=== PATIENT | male | born 1965 | race Caucasian/White ===

== ENCOUNTER → 2017-05-19 | Outpatient (CLI) | payer OTHER, BC ==
--- NOTE | 2017-05-19 13:15 | DI ---
There there are postoperative changes in the lumbar spine extending from L2 to the sacrum. There is p osterior hardware from L2-L4. Lung bases are clear. Liver is unremarkable. Gallbladder is absent. Spleen unremarkable. Pancreas unremarkable. No adrenal masses. 4 mm nonobstructing calculus in the inferior pole right pelvic calyceal system . Right ureter is norm al in course and caliber. There is no obstructive uropathy on the right side There are no left renal calculi. Left ureter is normal in course and caliber. There is no left-sided obstructive uropathy. Urinary bladder is unremarkable There is no focal inflammation. Appendicolith, but the appendix is normal in diameter and there is no inflammation to indicate appendicitis. No free air. No free fluid. No intestinal obstruction. Impression: 4 mm nonobstructing calculus inferior pole right pelvicalyceal system. No obstructive uropathy. Postoperative changes in the lumbar spine Status post cholecystectomy
== END ==
LOC: CT 08:59
DX: N20.0 Calculus of kidney (principal)
CPT/HCPCS: 74176

== ENCOUNTER 2018-11-02 11:23 | Inpatient (IN) ==
--- NOTE | 2018-11-02 11:46 | EKG ---
[address] [address] Measurements Intervals [place] Rate: 96 P: 63 SC: 150 QRS: 86 QRSD: 96 T: 47 QT: 341 QTc: 395 Interpretive Statements SINUS RHYTHM INTERPRETATION BASED ON A DEFAULT AGE OF 40 YEARS Compared to ECG 07/24/2018 14:58:53 No significant changes Electronically Signed On 11-02-18 14:58:58 MST by Tyler Peterson [email or web address]
[2018-11-02 11:48] LABS: BASOPHILS # (AUTO) 0.02 10*3/UL; BASOPHILS % (AUTO) 0.3 % (0-1); EOSINOPHILS # (AUTO) 0.15 10*3/UL; EOSINOPHILS % (AUTO) 2.4 % (0-8); Hematocrit [HCT] 47.7 % (42.0-52.0); LYMPHOCYTES # (AUTO) 2.15 10*3/uL; MEAN CORPUSCULAR HEMOGLOBIN 29.8 PG (27-31); MEAN CORPUSCULAR HGB CONC 33.5 g/dL (33-37); MEAN CORPUSCULAR VOLUME 88.8 FL (80-90); MEAN PLATELET VOLUME 9.6 FL (7.4-12.2); MONOCYTES # (AUTO) 0.33 10*3/UL (0.3-0.8); MONOCYTES % (AUTO) 5.4 % (5-15); NEUTROPHILS # (AUTO) 3.47 10*3/UL; NEUTROPHILS % (AUTO) 56.6 % (50-80); RED BLOOD COUNT 5.37 10^6/uL (4.70-6.10)
[2018-11-02 11:50] LABS: PLATELET MORPHOLOGY COMMENT NORMAL MORPHOLOGY (NORM); RBC MORPHOLOGY COMMENT NORMAL MORPHOLOGY (NORM); WBC MORPHOLOGY COMMENT NORMAL MORPHOLOGY (NORM)
[2018-11-02 11:55] LABS: BLOOD UREA NITROGEN 16 mg/dL (7-22); BUN/CREATININE RATIO 13.33 (6-20); SERUM ALBUMIN 5.1 g/dL (3.5-4.8)
[2018-11-02] MEDS ORDERED: Sodium Chloride 0.9% 1,000 ML PRIMARY IV ONE (12:07)
[2018-11-02] MEDS ORDERED: ONDANSETRON 4 MG/2 ML VIAL IVP ONE (12:07)
--- NOTE | 2018-11-02 12:23 | DI ---
XR CXR 1VW 11/02/2018 10:43 AM [place] [facility] [place] Pain Comparison: 07/24/2018. Findings: A single portable frontal view of the chest is submitted. A neural stimulator projects over the lower thoracic spine. Images demonstrate low lung volumes with elevation of the left hemidiaphragm and patchy left lung bas e opacities. There is no large pneumothorax or pleural effusion. The cardiomediastinal silhouette is within normal limits for technique. The osseous structures are not significantly changed. Impression: Lung volumes are low and there is elevation of the left hemidiaphragm with patchy left l antoni base opacities. This could represent atelectasis versus early airspace disease in the correct cli nical setting. Repeat imaging 6 weeks following completion of therapy is recommended in order to ensu re resolution.
--- NOTE | 2018-11-02 13:24 | DI ---
CT ANGIOGRAM OF THE CHEST, 11/02/2018 12:21 PM : Clinical History: Chest pain. Elevated D-dimer test. Previous Exam: 04/27/2018. Technique: Scans from base of neck to lung bases with IV contrast. Bolus tracking protocol was used f or timing the injection. Non-MIPS and MIPS sagittal/coronal images generated. IV Contrast: 65 mL of Isovue 370 Base of Neck: Normal. Nodes: Normal axillary, supraclavicular, mediastinal, and hilar lymph nodes. Heart: Normal. No coronary artery calcifications. Aorta: The ascending aorta is mildly ectatic with an AP and transverse diameter of 33 mm. The descend ing aorta is normal. Pulmonary Arteries: Normal. No pulmonary emboli or infarcts; no pulmonary hypertension. Lungs: No infiltrates. Effusion(s): None. Nodules: None. Bony Structures: Normal visualized portions of ribs, sternum, scapulae, clavicles, and shoulders. Nor mal visualized portions of thoracic spine. Limited Upper Abdomen: Normal adrenal glands and visualized portions of the spleen. There probably is hepatomegaly with mild fatty infiltration. READIN. Normal CTA of the chest. There are no pulmonary emboli or pulmonary infarcts. There has been no s ignificant interval change. 2. The ascending aorta is ectatic without evidence of a dissection.
--- NOTE | 2018-11-02 13:45 | PDOC ---
Chest Pain HPI - General Chief Complaint: Chest Pain Stated Complaint: CHEST PAIN Date Seen by Provider: 11/02/18 Time Seen by Provider: 11:25 Source: Patient, Spouse, EMS Exam Limitations: POSITIVE: No limitations Treatment Prior to Arrival: REPORTS: Nitroglycerin, Aspirin Nurse's Notes Reviewed & Considered: Yes EMS Report Reviewed & Considered: Verbal - History of Present Illness Initial Comments: The patient is a 53-year-old male who is brought to the emergency room by jann carey. 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 He managed to sleep last night, but states that his discomfort did disturb his sleep. He describes some chest pain which radiates into his left shoulder and arm. He has a sensation of being short of breath. 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 Patient's called an ambulance and the ambulance administered 4 baby aspirin and a nitroglycerin tablet in route. Patient states his chest pain is minimal on arrival to the emergency room. Patient has a history of hypertension. He states he is on disability for chronic low back pain. Body Location Affected: REPORTS: Chest Timing: REPORTS: Intermittent Duration: <24 hours Severity: Moderate Persistent/Worse since (date): 11/02/18 Persistent/Worse since (time): 07:00 Context: REPORTS: Rest Quality: REPORTS: "Pain", Pressure Radiation: REPORTS: Shoulder (L) Associated Symptoms: REPORTS: Shortness of Breath. DENIES: Nausea, Vomiting, Diaphoresis, Hurts to Breathe, Palpitations, Productive Cough (blood), Productive Cough (sputum), Weakness, Dizziness Modifying Factors: improves with: None Reported Similar Symptoms Previously: No Recently seen/treated/hospitalized: No Any Prior Injuries Related to Current Complaint?: No - Patient Home Medications Home Medications: Home Medications Albuterol Sulfate [Proair Hfa] 1 puff INH Q4-6H PRN #3 puff 01/23/16 mirtazapine 15 mg tablet 15 mg PO QHS 09/12/17 topiramate 100 mg tablet 1 mg PO BID tab 09/12/17 venlafaxine ER 75 mg capsule,extended release 24 hr 75 mg PO QDAY 09/12/17 Cyclobenzaprine HCl 10 mg PO BEDTIME 01/20/18 amlodipine 5 mg tablet 5 mg PO QHS #90 tab 03/03/18 Omeprazole 20 mg PO BEDTIME 04/19/18 Diazepam 5 mg PO DAILY 04/27/18 ramipril 10 mg capsule 10 mg PO QDAY #90 cap 05/05/18 pravastatin 80 mg tablet 80 mg PO QHS #90 tab 08/31/18 - Patient Allergies Allergies/Adverse Reactions: Allergies Allergy/AdvReac Type Severity Reaction Status Date / Time prednisone Allergy Intermediate RASH Verified 11/02/18 11:35 Past Medical History - heen HEENT History: Denies History Cardiovascular History: Hypertension, Hyperlipidemia Additional Cardiovasular History: Had a stress test in 2002, had pericarditis. Respiratory History: COPD, Snoring, Other (please comment) Additional Respiratory History: reactive airway disease pt states 65% lung function (unknown) Gastrointestinal History: Other (please comment) Additional Gastrointestinal History: SPLENOMEGALY/ HEPATIC STEATOSIS Genitourinary History: Kidney Stones Additional Genitourinary History: Saw a urologist in [place], ureter was too narrow and had stent, unable to remove stone. Endocrine History: Denies History Musculoskeletal History: Back Pain, Back Injury, Limited ROM, Joint Pain, Other (please comment) Prosthesis or Implant: Yes (spinal stimulator L buttocks) Additional Musculoskeletal History: Multipe lumbar surgeries including: fusions, hardware removal and replaced, spinal stimulator placed. Has tried several pain meds that have not relieved pain, is following up with spine for possiblity of getting a pain pump. Last fusion was February of 2014 in [place]. Has tried spinal stimulator Neurological History: Denies History Blood Disorders: Denies History Psychiatric History: Depression, Anxiety Disorders, Other (please comment) Additional Psychiatric History: Had suicidal ideation when taking Viibryd, had a suicide attempt, reports shooting a gun off by his ear. Was not hospitalized. Feels that his zoloft is causing diaphoresis and nausea History of Sexually Transmitted Diseases: No Cancer History: Denies History In Past Year Been Physically Harmed or Verbally Threatened: No History of MDRO: No History of Other Communicable Diseases: No Tobacco Use: Never Smoker Alcohol Use: None In the Past 12 Months, Have Used or Abuse Any Substance: None Previous Surgical History: Yes Type / Date of Surgery: cholecystectomy 15 years ago, disc surgery, three spinal fusions, implant of stimulator, R knee scope, 7 back surgeries Anesthesia Reactions: No (PONV) Malignant Hyperthermia: No Significant Family History: No pertinent family hx Past Medical History Reviewed: Reviewed - No Changes ROS - Limitations ROS Limitations: No Limitations Constitution: REPORTS: Denies Symptoms Cardiovascular: REPORTS: Chest Pain Respiratory: REPORTS: Shortness Of Breath Neurological: REPORTS: Denies Neuro Symptoms Gastrointestinal: REPORTS: Denies GI Symptoms Endocrine: REPORTS: Denies Symptoms Musculoskeletal: REPORTS: Denies MS Symptoms Genitourinary: REPORTS: Denies Symptoms Eyes: REPORTS: Denies Symptoms ENT: REPORTS: Denies Symptoms Skin: REPORTS: Denies Skin Symptoms Lympathic: REPORTS: Denies Lympathic Symptoms Immunologic: POSITIVE: Denies Symptoms Psychiatric: POSITIVE: Denies Psych Symptoms Chest Pain PE - General Appearance General Appearance: REPORTS: Alert, Cooperative, No Acute Distress, No Evidence of Trauma - HEENT HEENT: POSITIVE: Head Inspection Nml, Eyes Inspection Nml, Ears Inspection Nml, Nose Inspection Nml, Oral/Dental Inspect. Nml, Pharynx Inspect. Nml, PERRL, EOMI - Neck Neck: REPORTS: Normal Inspection, No Carotid Bruit - Respiratory Respiratory: REPORTS: No Respiratory Distress, Breath Sounds Normal, Chest Non- Tender - Cardiovascular Cardiovascular: REPORTS: Regular Rate and Rhythm, Heart Sounds Normal, Equal Pulses, Strong Pulses, No Murmur, No Gallop, No Friction Rub, No JVD Peripheral Pulses: Radial (R): 2+, Radial (L): 2+ - Abdomen Abdomen: Soft: (All Quadrants), Normal Bowel Sounds: (All Quadrants), Denies Tenderness: (All Quadrants), No Splenomegaly: (All Quadrants), No Hepatomegaly: (All Quadrants), No Guarding: (All Quadrants), No Rebound: (All Quadrants), No Palpable Pulse: (All Quadrants), No Palpabale Mass: (All Quadrants), No Distention: (All Quadrants), No Rigidity: (All Quadrants) - Skin Skin: REPORTS: Intact, Normal For Race, Warm, Dry, No Rash - Extremities Extremity: Non-Tender: (All Extremities), Normal ROM: (All Extremities), Normal Inspection: (All Extremities) - Neurological / Psychological Neurological: POSITIVE: Affect Apporpriate, Oriented X3, carpenter mold Normal As Tested, Motor Normal, Sensation Normal Images - Complete Complete: 1 - Area of described pain Chest Pain Progress - Results Reviewed by me Xrays/CTs/US Reviewed by me: Yes Discussed with Radiologist: Yes Radiology Findings: CTA chest normal, AP chest x-ray shows elevation of the left hemidiaphragm and poor inspiratory effort. CBC and BMP: 11/02/18 11:15 11/02/18 11:15 Lab Results:: Laboratory Results 11/02/18 11/02/18 11/02/18 11:15 11:15 11:15 WBC 6.13 RBC 5.37 Hgb 16.0 Hct 47.7 MCV 88.8 MCH 29.8 MCHC 33.5 RDW Std Deviation 47.6 RDW Coeff of Christiano 14.7 H Plt Count 188 MPV 9.6 Immature Gran % (Auto) 0.2 Neut % (Auto) 56.6 Lymph % (Auto) 35.1 [place] % (Auto) 5.4 Eos % (Auto) 2.4 Baso % (Auto) 0.3 Immature Gran # (Auto) 0.01 Neut # (Auto) 3.47 Lymph # (Auto) 2.15 [place]on # (Auto) 0.33 Eos # (Auto) 0.15 Baso # (Auto) 0.02 WBC Morphology Comment Normal morphology Plt Morphology Comment Normal morphology RBC Morph Comment Normal morphology D-Dimer 1.05 H Sodium 145 Potassium 4.0 Chloride 108 Carbon Dioxide 28 Anion Gap 9 BUN 16 Creatinine 1.2 Estimated GFR > 60 BUN/Creatinine Ratio 13.33 Glucose 113 H Calculated Osmolality 301.0 H Calcium 10.6 Total Bilirubin 0.5 AST 58 H ALT 68 Alkaline Phosphatase 88 CK-MB (CK-2) Troponin I Total Protein 8.0 Albumin 5.1 H Globulin 2.9 Albumin/Globulin Ratio 1.70 11/02/18 11:15 WBC RBC Hgb Hct MCV MCH MCHC RDW Std Deviation RDW Coeff of Christiano Plt Count MPV Immature Gran % (Auto) Neut % (Auto) Lymph % (Auto) Weston % (Auto) Eos % (Auto) Baso % (Auto) Immature Gran # (Auto) Neut # (Auto) Lymph # (Auto) [place]on # (Auto) Eos # (Auto) Baso # (Auto) WBC Morphology Comment Plt Morphology Comment RBC Morph Comment D-Dimer Sodium Potassium Chloride Carbon Dioxide Anion Gap BUN Creatinine Estimated GFR BUN/Creatinine Ratio Glucose Calculated Osmolality Calcium Total Bilirubin AST ALT Alkaline Phosphatase CK-MB (CK-2) 1.77 Troponin I < 0.012 Total Protein Albumin Globulin Albumin/Globulin Ratio EKG Interpreted/Reviewed By Me:: Yes (normal) EKG Interpretation:: POSITIVE: Normal Sinus Rhythm, Normal Rate, Normal Intervals, Normal [place], Normal QRS, Normal ST/T - Patient's Progress Pain Medication Addressed: POSITIVE: Yes (Nitroglycerin as above) School/Work Release Addressed: POSITIVE: Not Applicable Re-Examine Time: 13:30 Re-Examine Comment: Results of radiologic and laboratory tests discussed with patient and his and his parents. Advised that I'm not completely sure what the source of his pain is, but that I could not rule out a cardiac etiology. Options of further evaluation discussed and it was elected to admit the patient for further evaluation and treatment. Status: POSITIVE: Improved, Re-Examined Quality Measure Initiative: CP/AMI: POSITIVE: EKG, ASA - Consult Consult (If Yes, Name of Consulting MD & Time Called): Yes (Dr. Lance, hospitalist [id number],) Consulting MD will see pt:: POSITIVE[place] [facility] [place] Counseled: POSITIVE: Patient, Family, RE: Lab Results, RE: Radiology Results, RE: DX, RE: Need for F/U Patient Care Time - Estimated PCT Patient Care Time (In Minutes): 45 Vital Signs - Recent Vital Signs Vital Signs: Vital Signs (Last 8 hours) Temp Pulse Pulse Resp BP Pulse Ox 11/02/18 11:46 101.8 F H 11/02/18 11:30 95 11/02/18 11:25 99.5 F 100 16 145/73 93 - VS Reviewed Vital Signs Reviewed: Yes Discharge Clinical Impression: Chest pain Discharge Disposition: Admit to Inpatient Condition: Fair Follow Up With: Radu Diaz [Primary Care Provider] - Date Decision to Admit to Inpatient: 11/02/18 Time Decision to Admit to Inpatient: 13:30
[2018-11-02] MEDS ORDERED: ONDANSETRON 4 MG/2 ML VIAL IVP PRN (14:11)
[2018-11-02] MEDS ORDERED: NITROGLYCERIN 0.4 MG SL TAB (BOTTLE OF 3) SL PRN (14:11)
[2018-11-02] MEDS ORDERED: LIDOCAINE W/ SODIUM BICARB 0.5 ML SYR SUBD PRN (14:11)
[2018-11-02] MEDS ORDERED: CALCIUM CARBONATE 500 MG (TUMS) CHEWABLE TABLET PO PRN (14:11)
--- NOTE | 2018-11-02 14:21 | DI ---
LEFT RIB SERIES WITH PA CHEST X-RAY, 11/02/2018 1:28 PM: Clinical History: Trauma to the left ribs. Views: PA chest and two rib views. Chest X-Ray: Previous Exam: 01/29/2015. Soft Tissues: On this view, the patient took a shallow inspiration. No acute soft tissue or bony abno rmality. No subcutaneous emphysema. There is a stimulating device implanted in the midthoracic spine. Heart: Normal heart. Lungs: No infiltrates. No pneumothorax or pulmonary contusion. Effusion(s): None. Mediastinum: Normal mediastinum. Nodules: No pulmonary nodules. Bones: Normal. Left Rib Series: Previous Exam: None at this facility. Ribs: No rib fractures noted. Lung: Normal lung. Readin. Normal PA chest x-ray for the shallow inspiratory effort. 2. No left rib fractures are identified.
[2018-11-02] MEDS ORDERED: ALBUTEROL SULFATE 2.5 MG/3 ML NEB PRN (15:00)
[2018-11-02] MEDS: Sodium Chloride 0.9% 1,000 ML PRIMARY IV SCH (15:22)
[2018-11-02] MEDS: HEPARIN 5000 UNIT/1 ML SUBCUT SCH ×2 (15:22→23:41)
--- NOTE | 2018-11-02 18:14 | PDOC ---
HPI - History of Present Illness History of Present Illness: Is a very nice 53-year-old gentleman was brought to the ER cause of chest pain that started to happen about 15 hours prior to arrival he describes as somebody sitting on his chest discomfort continued to disturb his sleep pain radiated to his left arm and shoulder was also has short of breath with it and no diaphoresis he received aspirin nitroglycerin bladder glycerin in the ambulance patient was admitted for rule out his chest pain is resolved at present time initial troponins are negative Past Medical History Medical History: 1. Hypertension2. Hypercholesterolemia on no medication.3. Chronic back pain on pain medication. He had a spinal stimulator insertion.4. History of kidney stones.5. History of previous pericarditis.6. Depression Surgical History: 1. Cholecystectomy2. 3 back fusion surgeries last one in February 2013.3. History of previous renal stent last September. Family History: Reviewed an Not Pertinent Tobacco Use: Never Smoker In the Past 12 Months, Have Used or Abuse Any of the Following Substance: None Medication / Allergies Home Medications: Home Medications Medication Instructions Recorded Confirmed Type Albuterol Sulfate [Proair Hfa] 1 puff INH Q4-6H PRN #3 puff 01/23/16 11/02/18 History mirtazapine 15 mg tablet 15 mg PO QHS 09/12/17 11/02/18 History topiramate 100 mg tablet 1 mg PO BID tab 09/12/17 11/02/18 History venlafaxine ER 75 mg 75 mg PO QDAY 09/12/17 11/02/18 History capsule,extended release 24 hr Cyclobenzaprine HCl 10 mg PO BEDTIME 01/20/18 11/02/18 History amlodipine 5 mg tablet 5 mg PO QHS #90 tab 03/03/18 11/02/18 Rx Omeprazole 20 mg PO BEDTIME 04/19/18 11/02/18 History Diazepam 5 mg PO DAILY 04/27/18 11/02/18 History ramipril 10 mg capsule 10 mg PO QDAY #90 cap 05/05/18 11/02/18 Rx fluticasone 200 mcg-vilanterol 25 1 each Blst.W.Dev#4 Samples 08/07/18 11/02/18 Sample mcg/dose powder for inhalation pravastatin 80 mg tablet 80 mg PO QHS #90 tab 08/31/18 11/02/18 Rx Allergies/Adverse Reactions: Allergies Allergy/AdvReac Type Severity Reaction Status Date / Time prednisone Allergy Intermediate RASH Verified 11/02/18 11:35 Review of Systems - Review of Systems All Systems: Reviewed & No Additional Complaints Except as Stated - Cardiovascular Cardiovascular: REPORTS: Chest Pain - Gastrointestinal Gastrointestinal / Abdominal: DENIES: Negative System Review, Nausea, Vomiting, Diarrhea, Constipation, Abdominal Pain, Bloody Stool, Poor Appetite, Heartburn, Regurgitation, Bloating, Lactose Intolerance, Melena, Bright Red Blood per Rectum, Other, See HPI Exam - Vitals Vital Signs: Vital Signs Temperature 97.9 F Temperature Source Temporal Artery Scan Pulse Rate [Pulse Oximeter 95 Right] Pulse Rate 92 Respiratory Rate 18 Blood Pressure [Right Arm] 113/83 Blood Pressure 123/104 Pulse Ox 92 Oxygen Flow Rate ra Oxygen Delivery Method Room Air Height 5 ft 7 in Weight 221 lb - General General Appearance: No Acute Distress, Cooperative - Respiratory Respiratory Exam: POSITIVE: Clear to Auscultation - Bilaterally, Breathing Non Labored, Normal To Percussion, Normal to Percussion and Palpation - Cardiovascular Cardiovascular Exam: POSITIVE: RRR, No Murmur, No Clicks, No Gallops, No Rubs, PMI Non-Displaced - GI/Abdominal GI/Abdominal Exam: POSITIVE: Normal Bowel Sounds, Non Tender, Non Distended, Soft, No Masses, No Hepatomegaly, No Splenomegaly, No Organomegaly - Extremities Extremities Exam: POSITIVE: No Clubbing Present, No Edema Present, No Cyanosis Present Results - Labs CBC and BMP: 11/02/18 11:15 11/02/18 11:15 Assessment and Plan - Patient Problems (1) Chest pain Current Visit: Yes Status: Acute Comment: Rule out with serial enzymes and order Lexiscan stress test chest pain resolved at present time initial troponin is negative Code(s): R07.9 - Chest pain, unspecified (2) Benign hypertension Current Visit: No Status: Chronic Onset Date: ~2005 (3) COPD (chronic obstructive pulmonary disease) Current Visit: No Status: Chronic Code(s): J44.9 - Chronic obstructive pu lmonary disease, unspecified
[2018-11-02] MEDS: Topiramate Tab 50 MG TAB PO SCH (20:45)
[2018-11-02] MEDS ORDERED: Mirtazapine Tab 15 MG TAB PO SCH (21:00)
[2018-11-02] MEDS ORDERED: AmLODIPine Tab 5 MG TABLET PO SCH (21:00)
[2018-11-02] MEDS ORDERED: CYCLOBENZAPRINE 10 MG TABLET PO PRN (21:00)
[2018-11-02] MEDS ORDERED: Pravastatin 80mg Tab PO SCH (21:00)
[2018-11-02] MEDS ORDERED: OMEPRAZOLE 20 MG CAPSULE PO SCH (21:00)
[2018-11-03] MEDS: Sodium Chloride 0.9% 1,000 ML PRIMARY IV SCH ×2 (01:24→08:51)
[2018-11-03 05:04] LABS: BLOOD UREA NITROGEN 16 mg/dL (7-22); CHOL/HDL RATIO 4.21 RATIO (0-4.0); SERUM CHOLESTEROL 156 mg/dL (120-200)
[2018-11-03] MEDS: HEPARIN 5000 UNIT/1 ML SUBCUT SCH (07:00)
[2018-11-03] MEDS: Topiramate Tab 50 MG TAB PO SCH (08:51)
[2018-11-03] MEDS ORDERED: RAMIPRIL 10 MG CAPSULE PO SCH (09:00)
[2018-11-03] MEDS ORDERED: VENLAFAXINE XR 75 MG CAP PO SCH (09:00)
[2018-11-03] MEDS ORDERED: DIAZEPAM 5 MG TABLET PO PRN ×2 (09:00→10:12)
--- NOTE | 2018-11-03 09:44 | PDOC(PROG) ---
Interval History: Patient is having some chest pressure 8 out of 10 radiating to his left arm. No nausea no vomiting no diaphoresis Objective : Data - Labs CBC and BMP: 11/02/18 11:15 11/03/18 04:19 Objective : Exam - Head Head Exam: Normal Inspection, Normocephalic, Atraumatic - Eye Eye Exam: Normal Appearance, PERRL, EOMI, No Scleral Icterus - Respiratory Respiratory Exam: Clear to Auscultation - Bilaterally, Breathing Non Labored, Normal To Percussion, Normal to Percussion and Palpation - Cardiovascular Cardiovascular Exam: RRR, No Murmur, No Clicks, No Gallops, No Rubs, PMI Non- Displaced - GI/Abdominal GI/Abdominal Exam: Normal Bowel Sounds, Non Tender, Non Distended, Soft, No Masses, No Hepatomegaly, No Splenomegaly, No Organomegaly - Extremities Extremities Exam: No Clubbing Present, No Edema Present, No Cyanosis Present - Neurological Neurological Exam: Alert, Oriented x 3, Reflexes Normal, Normal Gait, CN II-XII Intact, No Facial Droop, Moves All Extremities Equally Assessment and Plan - Patient Problems (1) Chest pain Current Visit: Yes Status: Acute Comment: I will start nitro drip move patient to the ICU. I discussed the case with Dr. Parmar cardiology if to proceed or not with a stress test he said the cycle 2 troponins if they are negative for proceed with a stress test in [place] at [facility] [place] does not have any benefits for the patient to be accepted at present time. Patient is already on a calcium channel donnell 5 mg of Norvasc and PEDRITO inhibitor Code(s): R07.9 - Chest pain, unspecified (2) Benign hypertension Current Visit: No Status: Chronic Onset Date: ~2005 Comment: Stable (3) COPD (chronic obstructive pulmonary disease) Current Visit: No Status: Chronic Comment: Stable at present time Code(s): J44.9 - Chronic obstructive pulmonary disease, unspecified
[2018-11-03] MEDS ORDERED: LIDOCAINE W/ SODIUM BICARB 0.5 ML SYR SUBD PRN (10:12)
[2018-11-03] MEDS ORDERED: ONDANSETRON 4 MG/2 ML VIAL IVP PRN (10:12)
[2018-11-03] MEDS ORDERED: ALBUTEROL SULFATE 2.5 MG/3 ML NEB PRN (10:12)
[2018-11-03] MEDS ORDERED: CALCIUM CARBONATE 500 MG (TUMS) CHEWABLE TABLET PO PRN (10:12)
[2018-11-03] MEDS ORDERED: NITROGLYCERIN 0.4 MG SL TAB (BOTTLE OF 3) SL PRN (10:12)
[2018-11-03] MEDS ORDERED: CYCLOBENZAPRINE 10 MG TABLET PO PRN (10:12)
[2018-11-03] MEDS ORDERED: Nitroglycerin Drip 25,000 MCG/250 ML BOTTLE IV SCH (10:15)
[2018-11-03] MEDS ORDERED: Nitroglycerin Drip 25,000 MCG/250 ML BOTTLE IV ONE (10:25)
[2018-11-03] MEDS ORDERED: Sodium Chloride 0.9% 1,000 ML PRIMARY IV SCH (10:45)
[2018-11-03] MEDS ORDERED: HEPARIN 5000 UNIT/1 ML SUBCUT SCH (15:00)
[2018-11-03] MEDS ORDERED: MORPHINE SULFATE 2 MG/1 ML IVP PRN (20:16)
[2018-11-03] MEDS ORDERED: AmLODIPine Tab 5 MG TABLET PO SCH (21:00)
[2018-11-03] MEDS ORDERED: Topiramate Tab 50 MG TAB PO SCH (21:00)
[2018-11-03] MEDS ORDERED: Mirtazapine Tab 15 MG TAB PO SCH (21:00)
[2018-11-03] MEDS ORDERED: Pravastatin 80mg Tab PO SCH (21:00)
[2018-11-03] MEDS ORDERED: OMEPRAZOLE 20 MG CAPSULE PO SCH (21:00)
[2018-11-03] MEDS ORDERED: Heparin Drip 25,000 UNIT/500 ML BAG IV SCH (22:30)
--- NOTE | 2018-11-03 22:46 | DCSUMMARY ---
Hospitalization Summary Hospital Course: Final Discharge Diagnosis: Current Visit Problems Problem Status Onset Code Chest pain Acute R07.9 Unstable angina Diagnostic Data, Laboratory Data, and Procedures of Signifigance: Laboratory Results 11/03/18 11/03/18 11/03/18 04:19 04:19 04:19 Sodium 143 Potassium 4.3 Chloride 110 Carbon Dioxide 24 Anion Gap 9 BUN 16 Creatinine 1.0 Estimated GFR > 60 BUN/Creatinine Ratio 16.00 Glucose 100 Calculated Osmolality 296.0 H Calcium 9.2 Total Bilirubin 0.4 AST 33 ALT 63 Alkaline Phosphatase 66 Total Creatine Kinase 145 Troponin I < 0.012 Total Protein 6.1 Albumin 4.0 Globulin 2.1 L Albumin/Globulin Ratio 1.90 Triglycerides 211 H Cholesterol 156 LDL Cholesterol, Calc 76.800 VLDL Cholesterol 42 H HDL Cholesterol 37 L Cholesterol/HDL Ratio 4.21 H TSH Free T4 11/03/18 11/03/18 04:19 09:33 Sodium Potassium Chloride Carbon Dioxide Anion Gap BUN Creatinine Estimated GFR BUN/Creatinine Ratio Glucose Calculated Osmolality Calcium Total Bilirubin AST ALT Alkaline Phosphatase Total Creatine Kinase Troponin I < 0.012 Total Protein Albumin Globulin Albumin/Globulin Ratio Triglycerides Cholesterol LDL Cholesterol, Calc VLDL Cholesterol HDL Cholesterol Cholesterol/HDL Ratio TSH 1.91 Free T4 0.66 L History and Physical pertinent to Admission: Course of Hospitalization: This very nice 53-year-old gentleman past echo history significant for hypertension hypercholesterolemia and she states that at 12-15 hours prior to arrival to the ER he was experiencing chest pain radiated to his left arm and shoulder this went away and he had a recurrence of it early in the morning at that point his called the area and the ambulance and he was transported to the ER if chest pain was resolved in the ER and patient was admitted for rule out and plan to have a stress test he did is the resting part of his Lexiscan stress test this morning the chest pain that came back on and the nitro drip was started which showed improved that the symptoms consult with the [facility] in [place] no beds available at present time discussed the case he had negative troponins 5 at this point in time he still is having chest pain which comes and goes relieved by nitro drip no EKG changes. I will transfer the patient to [facility] for further evaluation and workup by cardiology also as recomm ended and discussed with the eICU .I spoke to Dr. Roman [facility] who was going to contact the [facility] who graciously accepted the patient. CT scan of his chest revealed no PE no pneumonia no dissection chest x-ray revealed no rib fractures. Patient is on disability for chronic low back pain On the date of discharge, the patient was examined: Gen.: [No acute distress, alert, nontoxic] Heart: [Regular rate and rhythm, no murmurs, clicks, gallops, or rubs] Lungs: [Clear to auscultation bilaterally, breathing is nonlabored] Abdomen/GI: [Normal tones on auscultation, soft, nontender, nondistended] Musculoskeletal/extremities: [No clubbing, cyanosis, or edema] Vitals reviewed and are listed below Vital Signs (24 hrs) 11/02/18 23:00 11/03/18 00:07 11/03/18 03:00 Temperature 97.6 F Pulse Rate 82 83 Pulse Rate [Pulse Oximeter Right] 85 Pulse Rate [Telemetry] Respiratory Rate 12 Blood Pressure [Left Arm] Blood Pressure [Right Arm] 108/72 Pulse Ox 93 92 92 11/03/18 05:00 11/03/18 07:00 11/03/18 07:05 Temperature 97.9 F 97.3 F Pulse Rate 81 Pulse Rate [Pulse Oximeter Right] 87 84 Pulse Rate [Telemetry] Respiratory Rate 16 18 Blood Pressure [Left Arm] Blood Pressure [Right Arm] 113/67 100/70 Pulse Ox 92 95 94 11/03/18 09:53 11/03/18 10:00 11/03/18 10:15 Temperature Pulse Rate Pulse Rate [Pulse Oximeter Right] Pulse Rate [Telemetry] 97 84 Respiratory Rate 16 Blood Pressure [Left Arm] Blood Pressure [Right Arm] 109/86 122/103 Pulse Ox 94 11/03/18 10:30 11/03/18 11:00 11/03/18 11:48 Temperature Pulse Rate 82 Pulse Rate [Pulse Oximeter Right] Pulse Rate [Telemetry] Respiratory Rate Blood Pressure [Left Arm] Blood Pressure [Right Arm] 108/80 110/74 Pulse Ox 11/03/18 11:53 11/03/18 11:55 11/03/18 11:56 Temperature 97.8 F Pulse Rate Pulse Rate [Pulse Oximeter Right] 80 80 Pulse Rate [Telemetry] 97 Respiratory Rate 18 18 Blood Pressure [Left Arm] Blood Pressure [Right Arm] 118/75 Pulse Ox 94 95 11/03/18 11:58 11/03/18 13:00 11/03/18 13:33 Temperature Pulse Rate Pulse Rate [Pulse Oximeter Right] 80 Pulse Rate [Telemetry] 74 74 Respiratory Rate 16 16 Blood Pressure [Left Arm] Blood Pressure [Right Arm] 118/75 118/75 Pulse Ox 93 11/03/18 15:00 11/03/18 15:23 11/03/18 15:30 Temperature 97.8 F Pulse Rate 81 Pulse Rate [Pulse Oximeter Right] Pulse Rate [Telemetry] 82 Respiratory Rate 16 Blood Pressure [Left Arm] Blood Pressure [Right Arm] 114/69 Pulse Ox 93 93 11/03/18 16:06 11/03/18 17:00 11/03/18 18:00 Temperature 97 F 97 F 98 F Pulse Rate Pulse Rate [Pulse Oximeter Right] 82 82 Pulse Rate [Telemetry] 84 80 Respiratory Rate 17 18 18 Blood Pressure [Left Arm] Blood Pressure [Right Arm] 109/62 109/65 112/68 Pulse Ox 93 94 94 11/03/18 19:00 11/03/18 19:55 11/03/18 20:00 Temperature Pulse Rate 86 Pulse Rate [Pulse Oximeter Right] Pulse Rate [Telemetry] 85 85 82 Respiratory Rate 14 14 14 Blood Pressure [Left Arm] 113/67 94/57 Blood Pressure [Right Arm] Pulse Ox 92 92 11/03/18 20:24 11/03/18 20:52 11/03/18 21:00 Temperature 97.0 F Pulse Rate Pulse Rate [Pulse Oximeter Right] Pulse Rate [Telemetry] 80 79 Respiratory Rate 14 21 Blood Pressure [Left Arm] 100/62 97/60 127/68 Blood Pressure [Right Arm] Pulse Ox 91 96 11/03/18 22:00 Temperature Pulse Rate Pulse Rate [Pulse Oximeter Right] 82 Pulse Rate [Telemetry] 79 Respiratory Rate 17 Blood Pressure [Left Arm] 101/65 Blood Pressure [Right Arm] Pulse Ox 90 Assessment and Plan: 1. As per discharge assessments above 2. Disposition: Yesterday [facility] for unstable angina or cardiology services 3. Condition on discharge, stable and improved. 4. Diet: regular diet 5. Activities: resume normal activities 6. Follow-Up: 1. [PCP] 2. 7. Medications at the Time of Discharge: Home Medications Medication Instructions Recorded Confirmed Type Albuterol Sulfate [Proair Hfa] 1 puff INH Q4-6H PRN #3 puff 01/23/16 11/02/18 History mirtazapine 15 mg tablet 15 mg PO QHS 09/12/17 11/02/18 History topiramate 100 mg tablet 1 mg PO BID tab 09/12/17 11/02/18 History venlafaxine ER 75 mg 75 mg PO QDAY 09/12/17 11/02/18 History capsule,extended release 24 hr Cyclobenzaprine HCl 10 mg PO BEDTIME 01/20/18 11/02/18 History amlodipine 5 mg tablet 5 mg PO QHS #90 tab 03/03/18 11/02/18 Rx Omeprazole 20 mg PO BEDTIME 04/19/18 11/02/18 History Diazepam 5 mg PO DAILY 04/27/18 11/02/18 History ramipril 10 mg capsule 10 mg PO QDAY #90 cap 05/05/18 11/02/18 Rx fluticasone 200 mcg-vilanterol 25 1 each Blst.W.Dev#4 Samples 08/07/18 11/02/18 Sample mcg/dose powder for inhalation pravastatin 80 mg tablet 80 mg PO QHS #90 tab 08/31/18 11/02/18 Rx Active Medications Generic Name Dose Route Start Last Admin Trade Name Freq PRN Reason Stop Dose Admin Albuterol Sulfate 2.5 mg 11/03/18 10:12 Albuterol Neb Soln 0.083% NEB RTQ4H PRN Dyspnea Amlodipine Besylate 5 mg 11/03/18 21:00 11/03/18 20:22 Norvasc PO Not Given BEDTIME PHILLIP Calcium Carbonate 1 - 2 tab 11/03/18 10:12 Tums PO QID PRN Heartburn Cyclobenzaprine HCl 10 mg 11/03/18 10:12 Flexeril PO TID PRN Spasms Diazepam 5 mg 11/03/18 10:12 Valium PO BID PRN SPASMS Nitroglycerin/Dextrose 25,000 mcg in 250 mls @ 3 mls/hr 11/03/18 10:15 11/03/18 20:14 Tridil Drip IV 5 mcg/min .TITRATE PHILLIP 3 mls/hr Titration Protocol 5 MCG/MIN Sodium Chloride 25 mls @ 200 mls/hr 11/03/18 10:12 Normal Saline 0.9% IV .Post Infusion PRN Flush Sodium Chloride 1,000 mls @ 30 mls/hr 11/03/18 10:45 11/03/18 12:39 Normal Saline PRIMARY IV 30 mls/hr .Q24H PHILLIP Administration Heparin Sodium/Dextrose 25,000 unit in 500 mls @ 24 mls/hr 11/03/18 22:30 Heparin (Premix) IV .Per Protocol [facility] Protocol Lidocaine HCl 0.5 ml 11/03/18 10:12 Lidocaine Buffered Inj SUBD ONCE PRN IV Starts Mirtazapine 15 mg 11/03/18 21:00 11/03/18 20:59 Remeron PO 15 mg BEDTIME PHILLIP Administration Morphine Sulfate 1 - 2 mg 11/03/18 20:16 Morphine Inj IVP Q4H PRN Pain Nitroglycerin 1 tab 11/03/18 10:12 Nitrostat Sl 0.4mg Tab SL Q5M PRN Chest Pain Omeprazole 20 mg 11/03/18 21:00 11/03/18 20:59 Prilosec PO 20 mg BEDTIME PHILLIP Administration Ondansetron HCl 4 mg 11/03/18 10:12 Zofran Inj IVP Q4H PRN NAUSEA / VOMITING Pravastatin Sodium 80 mg 11/03/18 21:00 11/03/18 20:59 Pravachol PO 80 mg BEDTIME PHILLIP Administration Ramipril 10 mg 11/04/18 09:00 Altace PO DAILY PHILLIP Topiramate 100 mg 11/03/18 21:00 11/03/18 20:59 Topamax PO 100 mg BID PHILLIP Administration Venlafaxine HCl 75 mg 11/04/18 09:00 Effexor Xr PO DAILY [facility] 8. Time, care, counseling and coordination of care for this discharge is greater than 30 minutes. Exam - Vitals Vital Signs: Vital Signs Temperature 97.0 F Temperature Source Temporal Artery Scan Pulse Rate [Telemetry] 79 Pulse Rate [Pulse Oximeter 82 Right] Pulse Rate 86 Respiratory Rate 17 Blood Pressure [Left Arm] 101/65 Blood Pressure [Right Arm] 112/68 Blood Pressure 123/104 Pulse Ox 90 Oxygen Flow Rate ra Oxygen Delivery Method Room Air Height 5 ft 7 in Weight 221 lb Patient Problems - Patient Problem List (1) Chest pain Current Visit: Yes Status: Acute Code(s): R07.9 - Chest pain, unspecified Category: Medical (2) Benign hypertension Current Visit: No Status: Chronic Onset Date: ~2005 Comment: Category: Medical (3) COPD (chronic obstructive pulmonary disease) Current Visit: No Status: Chronic Code(s): J44.9 - Chronic obstructive pulmonary disease, unspecified Category: Medical
--- NOTE | 2018-11-03 22:49 | EKG ---
[address] [address] Measurements Intervals [place] Rate: 87 P: 51 PA: 175 QRS: 70 QRSD: 101 T: 36 QT: 352 QTc: 397 Interpretive Statements SINUS RHYTHM Compared to ECG 11/02/2018 11:31:31 No significant changes Electronically Signed On 11-04-18 08:42:17 MST by Juan Luis Mendez MD [email or web address]
[2018-11-03 23:25] VITALS: BP 126/85; RESP 18; TEMP 97; O2SAT 94
[2018-11-04] MEDS ORDERED: RAMIPRIL 10 MG CAPSULE PO SCH (09:00)
[2018-11-04] MEDS ORDERED: VENLAFAXINE XR 75 MG CAP PO SCH (09:00)
== END 2018-11-03 23:42 | disposition short-term general hospital (02) | DRG 311 ==
LOC: MED/SURG 11:23 → ER 11:23 → MED/SURG 14:00
PROVIDERS: ADMIT Internal Medicine; ATTEND Internal Medicine